=== PATIENT | female | born 1995 | race Two or more races ===

== ENCOUNTER 2017-04-29 11:53 | Observation (INO) | payer OTHER ==
--- NOTE | 2017-04-29 12:39 | EDPHY ---
H & P Time Seen by Provider: 04/29/17 12:25 HPI/ROS: CHIEF COMPLAINT: "I broke my leg" HISTORY OF PRESENT ILLNESS: 21-year-old female arrives via private vehicle complaining of acute left tibia and fibula pain after she was intoxicated, fell out of her bed at approximately 2:00 a.m. this morning, subsequently seen at [facility], diagnosed with a tibia and fibula fracture, splinted and told to come to the ER for further evaluation. She denies paresthesia. Denies back pain. Denies head injury. Denies midline C-spine pain or injury. REVIEW OF SYSTEMS: A ten point review of systems was performed and is negative with the exception of the items mentioned in the HPI PAST MEDICAL/SURGICAL HISTORY: no anticoagulant use, no relevant medical/ surgical history SOCIAL HISTORY: Positive alcohol use at time of incident. [facility] Student PHYSICAL EXAM 1) GENERAL: Well-developed, well-nourished, alert and oriented. Appears uncomfortable Answering questions appropriately. 2) HEAD: Normocephalic, atraumatic 3) HEENT: Pupils equal, round, reactive to light bilaterally. Negative Horners. Nasopharynx, oropharynx, clear. No deformity or angulation of nose. No septal hematoma. No rhinorrhea. No oral trauma. Ears bilaterally with normal tympanic membranes. No hemotympanum. No fluid or blood in the external auditory canal. No raccoon eyes. No Back sign. Teeth are normally aligned with no gross malocclusion, TMJ bilaterally nontender, facial bones nontender including the zygomatic arch, maxilla mandible. 4) NECK: No cervical collar is on. Posterior cervical spine is nontender, no stepoff, no effusion. Full range of motion which does not elicit any midline cervical spine pain, no posterior midline tenderness, no step-off. 5) LUNGS: Clear to auscultation bilaterally, no wheezes, no rhonchi, no retractions. No obvious signs of trauma. No chest wall pain. No flaring, no grunting. Moving symmetrically. No crepitus. 6) HEART: Regular rate and rhythm, 7) ABDOMEN: No guarding, no rebound, no focal tenderness, no peritoneal signs, no signs of trauma, no ecchymosis 8) MUSCULOSKELETAL: Left lower extremity: Ecchymosis, tenderness to palpation mid tibial region with intact skin, soft compartments. Tender to palpation dorsum of left foot. Calcaneus nontender. Soft compartments. DP PT pulses present and brisk. Proximally the knee, femur nontender. 9) BACK: No midline vertebral tenderness, no fluctuance, no step-off, no obvious trauma, no visual or palpable abnormality. 10) SKIN: No laceration. No abrasion DIFFERENTIAL DIAGNOSIS: [in no particular order including but not limited to fracture, sprain, compartment syndrome Smoking Status: Never smoked Constitutional: Initial Vital Signs Temperature (C) 36.7 C 04/29/17 11:58 Heart Rate 106 H 04/29/17 11:58 Respiratory Rate 18 04/29/17 11:58 Blood Pressure 111/61 04/29/17 11:58 O2 Sat (%) 95 04/29/17 11:58 O2 Delivery Mode Room Air Allergies/Adverse Reactions: No Known Allergies Allergy (Unverified 04/29/17 11:57) Home Medications: Medication Instructions Recorded NK [No Known Home Meds] 04/29/17 MDM/Departure - MDM Imaging Results: Imaging Impressions Tibia/Fibula X-Ray 04/29/17 14:02 Impression: Fractures of the proximal fibula and the mid and distal portions of the tibia, as above-detailed. Left Foot (3 Views), at 2:20 PM: There are partially-comminuted and minimally displaced fractures involving the distal diaphyseal portions of the fourth and fifth metatarsals. There is no intra-articular extension of the fractures, or metatarsophalangeal joint malalignment. There is soft tissue swelling. There is a minor hallux valgus configuration with a small osseous bunion. The tarsometatarsal alignment is anatomic. Impression: Partially comminuted fractures involving the distal diaphyseal portions of the fourth and fifth metatarsals. Foot X-Ray 04/29/17 14:03 Impression: Fractures of the proximal fibula and the mid and distal portions of the tibia, as above-detailed. Left Foot (3 Views), at 2:20 PM: There are partially-comminuted and minimally displaced fractures involving the distal diaphyseal portions of the fourth and fifth metatarsals. There is no intra-articular extension of the fractures, or metatarsophalangeal joint malalignment. There is soft tissue swelling. There is a minor hallux valgus configuration with a small osseous bunion. The tarsometatarsal alignment is anatomic. Impression: Partially comminuted fractures involving the distal diaphyseal portions of the fourth and fifth metatarsals. Medications Given: Discontinued Medications Hydromorphone HCl (Dilaudid) 0.5 mg IVP EDNOW ONE Stop: 04/29/17 12:48 Last Admin: 04/29/17 13:06 Dose: 0.5 mg Hydromorphone HCl (Dilaudid) 0.5 mg IVP EDNOW ONE Stop: 04/29/17 16:17 Last Admin: 04/29/17 16:22 Dose: 0.5 mg Sodium Chloride (Ns) 1,000 mls @ 0 mls/hr IV ONCE ONE PRN Reason: Wide Open Stop: 04/29/17 12:57 Last Admin: 04/29/17 13:07 Dose: 1,000 mls Ondansetron HCl (Zofran) 4 mg IVP EDNOW ONE Stop: 04/29/17 12:48 Last Admin: 04/29/17 13:06 Dose: 4 mg ED Course/Re-evaluation: 12:39 p.m.: The patient brought with her images on a CD however we are unable to elbow these to our system. In addition, she is currently splinted I am unable to assess neurovascular status. She requests analgesia prior to me taking down her splint.Care of patient under supervision of secondary supervising physician Dr Larsen . 2:50 p.m.: Phone consultation with DEVYN Harper with Dr. Salvador Crawford who will evaluate the x-rays and call me back 3:50 p.m.: Informed by orthopedics DEVYN Harper that patient will be going to the operating room at approximately 6:00 p.m. for operative repair with Dr. Salvador Crawford. Care of patient under supervision of secondary supervising physician Dr Chaves . orthopedics request that no splint be placed at this time as patient is going to the OR soon. 4:30 p.m.: Orthopedics requests hospitalist admit patient primarily 4:39 p.m.: Phone consultation Dr. Spencer Whalen who will admit patient - Depart Disposition: [facility] Inpatient Acute Clinical Impression: Closed left tibial fracture Qualifiers: Encounter type: initial encounter Tibia location: distal Fracture morphology: other fracture Qualified Code(s): S82.392A - Other fracture of lower end of left tibia, initial encounter for closed fracture Left fibular fracture Qualifiers: Encounter type: initial encounter Fibula location: proximal Fracture type: closed Fracture morphology: other fracture Qualified Code(s): S82.832A - Other fracture of upper and lower end of left fibula, initial encounter for closed fracture Fracture of fourth metatarsal bone of left foot Qualifiers: Encounter type: initial encounter Fracture type: closed Fracture alignment: displaced Qualified Code(s): S92.342A - Displaced fracture of fourth metatarsal bone, left foot, initial encounter for closed fracture Fracture of fifth metatarsal bone of left foot Qualifiers: Encounter type: initial encounter Fracture type: closed Fracture alignment: displaced Qualified Code(s): S92.352A - Displaced fracture of fifth metatarsal bone, left foot, initial encounter for closed fracture Condition: Fair
[2017-04-29] MEDS ORDERED: ONDANSETRON 4 MG/2 ML VIAL IVP ONE (12:47)
[2017-04-29] MEDS ORDERED: HYDROmorphONE/DILAUDID 1 MG/ML INJ IVP ONE ×2 (12:47→16:16)
[2017-04-29] MEDS ORDERED: NS 1,000 ML IV ONE (12:56)
[2017-04-29 13:01] LABS: % IMMATURE GRANULYOCYTES 0.5 % (0.0-1.1); ABSOLUTE IMMATURE GRANULOCYTES 0.06 10^3/uL (0.00-0.10); ADD DIFF? NO; ADD MORPH? NO; ADD SCAN? NO; ATYPICAL LYMPHOCYTE FLAG 0 (0-99); FRAGMENT RBC FLAG 0 (0-99); HEMATOCRIT 41.8 % (38.0-47.0); HEMOGLOBIN 14.2 g/dL (12.6-16.3); LEFT SHIFT FLG 0 (0-99); LIPEMIA HEMOLYSIS FLAG 90 (0-99); MEAN CELL HEMOGLOBIN 29.9 pg (27.9-34.1); MEAN PLATELET VOLUME 10.3 fL (8.7-11.7); PLATELET CLUMPS FLAG 0 (0-99); PLATELET COUNT 352 10^3/uL (150-400); RED BLOOD CELL COUNT 4.75 10^6/uL (4.18-5.33); RED CELL DISTRIBUTION WIDTH 11.8 % (11.5-15.2)
[2017-04-29 13:17] LABS: APTT 24.4 SEC (23.0-38.0); INR 1.13 (0.83-1.16); PROTIME(PATIENT) 14.4 SEC (12.0-15.0)
[2017-04-29 13:35] LABS: ANION GAP 11 mEq/L (8-16); CALCIUM 9.5 mg/dL (8.5-10.4); CARBON DIOXIDE 23 mEq/l (22-31); CHLORIDE 108 mEq/L (97-110); CREATININE 0.6 mg/dL (0.6-1.0); GLOMERULAR FILTRATION RATE > 60; GLUCOSE 92 mg/dL (70-100); SODIUM 142 mEq/L (134-144)
--- NOTE | 2017-04-29 16:21 | PDGENHP ---
History and Physical - Chief Complaint L leg pain - History of Present Illness 21y/o F c/o L leg pain x hours. Pt states she was climbing into her top bunkbed this morning, when she grabbed onto the blanket, which was not secure and she fell onto the floor. Pt states her pain was a 9/10 before arriving to the ED. Pt is unable to bear weight. Pt is accompanied by her two friends. Pt denies any numbness, or tingling in the lower extremities. History Information - Allergies/Home Medication List Allergies/Adverse Reactions: No Known Allergies Allergy (Unverified 04/29/17 11:57) Home Medications: NK [No Known Home Meds] 04/29/17 [Last Taken Unknown] I have personally reviewed and updated: family history, medical history, social history, surgical history Past Medical History: Healthy - Past Medical History no pertinent PMH - Surgical History Reports: no pertinent surgical hx - Family History Positive for: non-pertinent - Social History Smoking Status: Never smoked Alcohol Use: Occasionally Drug Use: None Additional social history: Pt is a Freshman at [employer], 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 Review of Systems Review of Systems: ROS: 10pt was reviewed & negative except for what was stated in HPI & below Physical Exam Physical Exam: Temp Pulse Resp BP Pulse Ox 36 C 88 16 95/65 L 99 04/29/17 14:00 04/29/17 14:00 04/29/17 14:00 04/29/17 14:00 04/29/17 14:00 Constitutional: no apparent distress Eyes: PERRL, EOMI Ears, Nose, Mouth, Throat: moist mucous membranes, hearing normal, no oral mucosal ulcers Peripheral Pulses: 2+: dorsalis-pedis (R), dorsalis-pedis (L) Respiratory: no respiratory distress Gastrointestinal: soft, non-tender abdomen Skin: warm, other (ecchymosis and edema dorsal aspect of the left foot and lower leg; compartments soft), No abrasion, No erythema, No induration Musculoskeletal: other (TTP left dorsal foot over the 4th and 5th metatarsals. TTP left distal tibia and proximal fibula. Able to wiggle her toes. FROM b/l upper extremities with good strength) Neurologic: AAOx3, sensation intact bilaterally, No weakness, No numbness Psychiatric: interacting appropriately Lymph, Heme, Immunologic: no cervical LAD Lab Data & Imaging Review 04/29/17 12:55 04/29/17 12:55 WBC 13.04 10^3/uL (3.80-9.50) H 04/29/17 12:55 RBC 4.75 10^6/uL (4.18-5.33) 04/29/17 12:55 Hgb 14.2 g/dL (12.6-16.3) 04/29/17 12:55 Hct 41.8 % (38.0-47.0) 04/29/17 12:55 MCV 88.0 fL (81.5-99.8) 04/29/17 12:55 MCH 29.9 pg (27.9-34.1) 04/29/17 12:55 MCHC 34.0 g/dL (32.4-36.7) 04/29/17 12:55 RDW 11.8 % (11.5-15.2) 04/29/17 12:55 Plt Count 352 10^3/uL (150-400) 04/29/17 12:55 MPV 10.3 fL (8.7-11.7) 04/29/17 12:55 Neut % (Auto) 84.2 % (39.3-74.2) H 04/29/17 12:55 Lymph % (Auto) 9.4 % (15.0-45.0) L 04/29/17 12:55 Hopkins % (Auto) 5.4 % (4.5-13.0) 04/29/17 12:55 Eos % (Auto) 0.2 % (0.6-7.6) L 04/29/17 12:55 Baso % (Auto) 0.3 % (0.3-1.7) 04/29/17 12:55 Nucleat RBC Rel Count 0.0 % (0.0-0.2) 04/29/17 12:55 Absolute Neuts (auto) 10.99 10^3/uL (1.70-6.50) H 04/29/17 12:55 Absolute Lymphs (auto) 1.22 10^3/uL (1.00-3.00) 04/29/17 12:55 Absolute Monos (auto) 0.71 10^3/uL (0.30-0.80) 04/29/17 12:55 Absolute Eos (auto) 0.02 10^3/uL (0.03-0.40) L 04/29/17 12:55 Absolute Basos (auto) 0.04 10^3/uL (0.02-0.10) 04/29/17 12:55 Absolute Nucleated RBC 0.00 10^3/uL (0-0.01) 04/29/17 12:55 Immature Gran % 0.5 % (0.0-1.1) 04/29/17 12:55 Immature Gran # 0.06 10^3/uL (0.00-0.10) 04/29/17 12:55 PT 14.4 SEC (12.0-15.0) 04/29/17 12:55 INR 1.13 (0.83-1.16) 04/29/17 12:55 APTT 24.4 SEC (23.0-38.0) 04/29/17 12:55 Sodium 142 mEq/L (134-144) 04/29/17 12:55 Potassium 4.0 mEq/L (3.5-5.2) 04/29/17 12:55 Chloride 108 mEq/L (97-110) 04/29/17 12:55 Carbon Dioxide 23 mEq/l (22-31) 04/29/17 12:55 Anion Gap 11 mEq/L (8-16) 04/29/17 12:55 BUN 10 mg/dL (7-23) 04/29/17 12:55 Creatinine 0.6 mg/dL (0.6-1.0) 04/29/17 12:55 Estimated GFR > 60 04/29/17 12:55 Glucose 92 mg/dL (70-100) 04/29/17 12:55 Calcium 9.5 mg/dL (8.5-10.4) 04/29/17 12:55 Beta HCG, Qual NEGATIVE 04/29/17 12:55 Imaging Review: Oblique fracture left lower 1/3 of tibia, proximal fibula fracture. 4th and 5th metatarsal fractures Assessment & Plan Assessment: Closed left tibial fracture (Acute) Fracture of fifth metatarsal bone of left foot (Acute) Fracture of fourth metatarsal bone of left foot (Acute) Left fibular fracture (Acute) Plan: - NPO - IM jairo fixation of the tibia planned later this evening with Dr. Crawford - Consent obtained - Pain management - NWB LLE - SCDs/TEDs for mechanical prophylaxis
[2017-04-29] MEDS ORDERED: ceFAZolin 2 GM/DEXTROSE 100 ML IV ONE (16:26)
[2017-04-29] MEDS ORDERED: ACETAMINOPHEN 325 MG TAB PO PRN (17:03)
[2017-04-29] MEDS ORDERED: ONDANSETRON 4 MG/2 ML VIAL IVP PRN ×2 (17:03→20:01)
[2017-04-29] MEDS ORDERED: HYDROmorphONE/DILAUDID 1 MG/ML INJ IVP PRN ×2 (17:06→20:01)
[2017-04-29] MEDS ORDERED: D5W 1/2 NS W/ 20 KCl/L 1,000 ML IV SCH (17:15)
--- NOTE | 2017-04-29 17:46 | GHP ---
[f rep st] HISTORY AND PHYSICAL DATE OF ADMISSION: 04/29/2017 HISTORY OF PRESENT ILLNESS: The patient is a 21-year-old healthy female, who had a mechanical fall l ast night. She was climbing up into her bunk at . She was on the second rung when she grabbed her blanket. Her blanket was not secure, and she fell and landed on her ankle. She twisted her ankle. She did not hit her head. She did not lose consciousness. She had been out having alcohol last nig ht, but was not excessively intoxicated. She was unable to bear weight and had pain initially, but s he opted to sleep on it and seek care today. No fever, chills, cough, sputum, nausea, vomiting, or d iarrhea. REVIEW OF SYSTEMS: A complete 10-point review of systems was conducted and negative except as noted in the HPI. PAST MEDICAL HISTORY: None. ALLERGIES: None. HOME MEDICATIONS: None. SOCIAL HISTORY: She is a student at from [place], [place]. She is a nonsmoker and social alcohol. FAMILY HISTORY: Reviewed. There were no bleeding complications. PHYSICAL EXAMINATION: VITAL SIGNS: Temperature 36.7, pulse initially 106 and now in the 80s, breath ing 18 times a minute, 95% on room air, blood pressure 95/65. GENERAL: No acute distress. Lying fl at. HEENT: Sclerae anicteric. Oropharynx clear. Mucous membranes moist. NECK: Supple, without l ymphadenopathy or JVD. LUNGS: Clear to auscultation bilaterally. HEART: S1, S2. Not tachycardic. Without murmur. ABDOMEN: Soft, nontender, nondistended. LOWER EXTREMITIES: There is edema and e cchymosis on the left. She has good cap refill. Her dorsalis pedis pulse is a little bit difficult to feel. She also has a fair amount of bruising over the dorsum of her foot, but again she has good cap refill. NEUROLOGIC: Exam is nonfocal. SKIN: Otherwise without rash. LABORATORY DATA: White count 13, hematocrit 42, platelets 350,000. Coags normal. Sodium 142, potas sium 4, chloride 108, bicarb 22, BUN 10, creatinine 0.6, glucose 92. Beta-hCG is negative. Tib-fib x-ray shows a proximal fibular fracture and a distal tibial fracture. These appear to be spiral in n ature. These x-rays were interpreted by me. Foot x-ray shows a partially comminuted fracture involv ing the distal diaphyseal portion of the 4th and 5th metatarsals. I discussed the case with DEVYN Johnson, in the emergency department. ASSESSMENT AND PLAN: A 21-year-old female, with multiple fractures secondary to fall. 1. Fractures. She is going to get jairo stabilization of her tibial fracture. I suspect that managem ent of the fibular and metatarsal fractures will be nonoperative. 2. Preoperative cardiac evaluation. The patient is young, with no cardiac risk factors. She may pr oceed to the OR without further workup or intervention. 3. Prophylaxis. Recommend SCDs. She is low risk. 4. Leukocytosis. Likely secondary to fractures. 5. Pain. We will give her IV Dilaudid. Thereafter, would recommend oral pain medications. /[id number]/MODL
[2017-04-29] MEDS ORDERED: BUPIVACAINE 0.25% 30 ML SDV ONE (18:13)
[2017-04-29] MEDS ORDERED: BACITRACIN 50,000 UNITS/10 ML SYR IRR ONE (18:14)
--- NOTE | 2017-04-29 19:00 | PDANEPAE ---
ANE History of Present Illness l tibial fracture ANE Past Medical History - Pulmonary History Hx Oxygen in Use at Home: No Hx Sleep Apnea: No - Endocrine History Hx Diabetes: No ANE Review of Systems Review of Systems: - Exercise capacity METS (RN): 4 METS ANE Patient History - Allergies Allergies/Adverse Reactions: No Known Allergies Allergy (Unverified 04/29/17 11:57) - Home Medications Home Medications: NK [No Known Home Meds] 04/29/17 [Last Taken Unknown] - NPO status NPO Since - Liquids (Date): 04/29/17 NPO Since - Liquids (Time): 10:00 NPO Since - Solids (Date): 04/29/17 NPO Since - Solids (Time): 10:00 - Smoking Hx Smoking Status: Never smoked - Alcohol Use Alcohol Use: Occasionally ANE Labs/Vital Signs - Labs Result Diagrams: 04/29/17 12:55 04/29/17 12:55 - Vital Signs Blood Pressure: 92/56 Heart Rate: 85 Respiratory Rate: 18 O2 Sat (%): 96 Height: 157.48 cm Weight: 49.895 kg ANE Physical Exam - Airway Neck exam: FROM Mallampati Score: Class 1 Mouth exam: normal dental/mouth exam - Pulmonary Pulmonary: no respiratory distress - Cardiovascular Cardiovascular: regular rate and rhythym - ASA Status ASA Status: II, E ANE Anesthesia Plan Anesthesia Plan: general endotracheal anesthesia
[2017-04-29] MEDS ORDERED: fentaNYL 100 MCG/2 ML INJ ONE (19:03)
[2017-04-29] MEDS ORDERED: LIDOCAINE 2% 5 ML SDV ONE (19:03)
[2017-04-29] MEDS ORDERED: PROPOFOL 200 MG/20 ML VIAL ONE (19:03)
[2017-04-29] MEDS ORDERED: ONDANSETRON 4 MG/2 ML VIAL ONE (19:03)
[2017-04-29] MEDS ORDERED: ROCURONIUM 50 MG/5 ML VIAL ONE (19:03)
[2017-04-29] MEDS ORDERED: DEXAMETHASONE 4 MG/ML VIAL ONE (19:03)
[2017-04-29] MEDS ORDERED: HYDROmorphONE/DILAUDID 2 MG/ML INJ ONE (19:03)
[2017-04-29] MEDS ORDERED: PROMETHAZINE HCL 25 MG/ML INJ IVP PRN (20:01)
[2017-04-29] MEDS ORDERED: MEPERIDINE 25 MG/ML SYR IVP PRN (20:01)
[2017-04-29] MEDS ORDERED: fentaNYL 100 MCG/2 ML INJ IVP PRN (20:01)
[2017-04-29] MEDS ORDERED: NALOXONE HCL 0.4 MG/ML INJ IVP PRN (20:01)
--- NOTE | 2017-04-29 20:28 | POSTOPPROG ---
Post Op Note Date of Operation: 04/29/17 Surgeon: Salvador Crawford Reinsurance Claims Analyst: Meredith Okeefe PA-C Anesthesiologist: Dr. Jovel Anesthesia: GET(General Endotracheal) Pre-op Diagnosis: L tibia and fibula fractures Post-op Diagnosis: L tibia and fibula fractures Procedure: IM nail fixation L tibia fracture Findings: See full dictation Inf/Abcess present in the surg proc area at time of surgery?: No Depth: Deep Incisional (Fascial) EBL: Minimal
--- NOTE | 2017-04-29 20:33 | POSTANESTH ---
Post Anesthetic Evaluation Cardiovascular Status: Normal, Stable Respiratory Status: Normal, Stable Level of Consciousness/Mental Status: Can Participate in Eval Pain Control: Adequate, Prn Tx Ordered Nausea/Vomiting Control: Adequate, Prn Tx Ordered Complications Possibly Related to Anesthesia: None Noted
[2017-04-29] MEDS: ONDANSETRON DISINTEGRATING 4 MG TAB PO PRN (22:59)
--- NOTE | 2017-04-29 23:57 | GOP ---
[f rep st] OPERATIVE REPORT DATE OF OPERATION: SURGEON: Salvador Crawford MD PREOPERATIVE DIAGNOSIS: 1. Left tibia fracture. 2. Left fibula fracture. 3. Left 4th metatarsal fracture. 4. Left 5th metatarsal fracture. POSTOPERATIVE DIAGNOSIS: 1. Left tibia fracture. 2. Left fibula fracture. 3. Left 4th metatarsal fracture. 4. Left 5th metatarsal fracture. PROCEDURE PERFORMED: 1. Intramedullary nail fixation, left tibia. 2. Closed treatment, left fibula. 3. Closed treatment, left 4th metatarsal fracture. 4. Closed treatment, left 5th metatarsal fracture. FINDINGS: A Synthes titanium intramedullary nail was utilized. This was a 315 mm long nail x 10 mm wide, that was statically interlocked x2 distally, and dynamically interlocked x1 proximally. 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 She sustained injury to her left leg and arrived in the [facility] Emergency Department where her bone fractures were identified and catalogued. Options for treatment were presented to the patient and she elected to proceed with intramedullary nail fixation. She did not need operative treatment of the other fractures. DESCRIPTION OF PROCEDURE: After routinely checking the patient's identification and consent, and the successful induction of LMA general endotracheal anesthetic, the patient was positioned with the Acu fex leg marie on the left leg allowing it to suspend from the thigh off the end of the operative tab le. A well leg marie was used for the right leg which was abducted and externally rotated out of th e way. The patient's left leg was now prepped and draped in usual standard fashion. I exsanguinated the limb with an Esmarch wrap and pneumatic tourniquet previously placed about the proximal left leg was inflated to 250 mmHg. A surgical time-out was completed. A longitudinal incision just to the m edial side of the patellar tendon was carried sharply through skin and then bluntly through the subcu taneous layer. I incised the patellar retinaculum just to the medial side of the patellar tendon. H emostasis was secured with electrocautery. I used a starting awl to create a fixed wing pilot hole in the tibia l plateau. I flexed the knee and passed the guidewire down it, longitudinally down the tibia. I sea miguel angel this at the distal physeal scar. The small FluoroScan unit was used to verify that the guidewire was indeed in the intramedullary canal. I then commenced with reaming this, taking care to flex the knee to avoid any patellar impingement. I reamed up to a size 11 reamer which had significant chatt er at the mid diaphysis of the tibia. The driving apparatus was installed on the nail and the nail w as inserted. Once the nail was flush proximally and appropriately positioned distally, the guide jairo was removed and the proximal interlock was performed from lateral to medial. This achieved excellen t purchase and was placed in the dynamic slot. I then removed the insertion apparatus and the drivin g apparatus and placed an end cap on the nail. I irrigated this wound. I then examined the distal a spect of the nail. I had a parallel tribal/tribal screw holes identified on the FluoroScan and then used the radiolucent drill via small cutdown incisions to distally interlock this x2 from medial to l ateral. Once this was completed, the entire tibia was scanned with the FluoroScan unit in 2 planes v erifying that this was appropriately reduced and the hardware was positioned appropriately. Satisfie d with this, the wounds were irrigated. I closed the cutdown incisions for the interlocking screws w ith subcuticular 4-0 Vicryl followed by Steri-Strips. I closed the patellar retinaculum with 0 Vicry l. The subcutaneous layer with 2-0 and 4-0 Vicryl and the skin with subcuticular 4-0 Monocryl follow ed by Steri-Strips. 0.5% Marcaine plus epinephrine infiltrated at the interlocking screw sites and a lso intra-articularly in the knee and also along the anterior wound for postoperative comfort and ass istance in hemostasis. A sterile bulky dressing was applied full-length from knee to ankle with gent le compression. The tourniquet was deflated and the patient was reversed from anesthetic and extubat ed in the operating room. She was transferred to the recovery room in excellent condition. She tole rated the procedure well. There were no complications. REASON FOR DEGREASER OPERATOR: A surgical garment assembly supervisor was medically necessary and required to complete this case. The geriatric assistant was used to decrease surgical time. The geriatric assistant was also used to positi on the leg in 3-dimensional space during the reduction of the fracture and passage of the definitive implants. /[id number]/MODL
[2017-04-30] MEDS: oxyCODONE IR 5 MG TAB PO PRN ×4 (00:57→15:12)
[2017-04-30] MEDS: ceFAZolin 2 GM/DEXTROSE 100 ML IV SCH ×2 (03:52→11:15)
[2017-04-30 05:11] LABS: % IMMATURE GRANULYOCYTES 0.4 % (0.0-1.1); ABSOLUTE IMMATURE GRANULOCYTES 0.04 10^3/uL (0.00-0.10); ADD DIFF? NO; ADD MORPH? NO; ADD SCAN? NO; ATYPICAL LYMPHOCYTE FLAG 0 (0-99); FRAGMENT RBC FLAG 0 (0-99); HEMOGLOBIN 12.7 g/dL (12.6-16.3); LEFT SHIFT FLG 0 (0-99); LIPEMIA HEMOLYSIS FLAG 80 (0-99); MEAN CELL HEMOGLOBIN 29.7 pg (27.9-34.1); MEAN CELL HEMOGLOBIN CONCENTR. 33.4 g/dL (32.4-36.7); MEAN PLATELET VOLUME 10.9 fL (8.7-11.7); PLATELET CLUMPS FLAG 0 (0-99); PLATELET COUNT 299 10^3/uL (150-400); RED BLOOD CELL COUNT 4.27 10^6/uL (4.18-5.33); RED CELL DISTRIBUTION WIDTH 11.9 % (11.5-15.2)
[2017-04-30] MEDS: ASPIRIN 325 MG TAB PO SCH (08:15)
--- NOTE | 2017-04-30 14:54 | SOAPPROG ---
SOAP Progress Note Assessment/Plan: Assessment/Plan: s/p IM nail fixation L tibia fracture POD#1 - Continue pain management - Continue ice and elevation for pain and swelling - NWB LLE - PT/OT - ASA 325mg daily for VTE chemoprophylaxis - SCDs/TEDs on RLE - Continue course of prophylactic antibiotics - Likely discharge tomorrow 04/30/17 14:51 Subjective: Pt states she is doing okay, she skipped a dose of her oxycodone and is trying to "catch up". Pt denies fever, chills, chest pain, SOB, abdominal pain, N/V/D, numbness, tingling, and calf pain. Objective: Vital Signs Temp Pulse Resp BP Pulse Ox 36.8 C 76 17 108/80 95 04/30/17 11:32 04/30/17 11:32 04/30/17 11:32 04/30/17 11:32 04/30/17 11:32 Laboratory Results 04/30/17 04:34 04/29/17 04/30/17 05/01/17 05:59 05:59 05:59 Intake Total 2500 Output Total 700 Balance 1800 PT 14.4 SEC (12.0-15.0) 04/29/17 12:55 INR 1.13 (0.83-1.16) 04/29/17 12:55 Physical Exam - Physical Exam General Appearance: alert, no apparent distress Cardiac/Chest: normal peripheral pulses Skin: normal color, warm/dry Extremities: normal inspection, normal capillary refill, pedal edema (dorsal aspect L foot with associated ecchymosis), No calf tenderness, No Antelmo's sign Neuro/Psych: no motor/sensory deficits, alert, normal mood/affect, oriented x 3 ICD10 Worksheet Patient Problems: Problems Problem Status Onset Closed left tibial fracture Acute Fracture of fifth metatarsal bone of left foot Acute Fracture of fourth metatarsal bone of left foot Acute Left fibular fracture Acute
--- NOTE | 2017-04-30 16:02 | ASMTCMCOM ---
CM Note CM Note Notes: 21 year old female fell from a climb to her top bunk- left tibial/fibular fx's, 4th and 5th metatarsal fx's. will be dischaged Monday. Wrote a note for assist on campus to get to classes. Mother coming from [place] to assist at home. No other needs at this time. Date Signed: 04/30/2017 04:01 PM Electronically Signed By:Stacy Manrique LCSW
[2017-04-30] MEDS: HYDROCODONE/APAP 5/325 TAB PO PRN ×2 (18:11→22:16)
[2017-05-01] MEDS: oxyCODONE IR 5 MG TAB PO PRN (01:39)
[2017-05-01] MEDS: ONDANSETRON DISINTEGRATING 4 MG TAB PO PRN (04:11)
[2017-05-01] MEDS: HYDROCODONE/APAP 5/325 TAB PO PRN ×3 (06:33→15:52)
[2017-05-01 08:02] VITALS: BP 101/58; PULSE 79; RESP 15; TEMP 98.4; O2SAT 90
--- NOTE | 2017-05-01 08:14 | SOAPPROG ---
SOAP Progress Note Assessment/Plan: Assessment: POD#2 left tibia fracture IM nail Plan: Assessment/Plan: s/p IM nail fixation L tibia fracture POD#2 - Continue pain management - Continue ice and elevation for pain and swelling - NWB LLE - PT/OT - ASA 325mg daily for VTE chemoprophylaxis - SCDs/TEDs on RLE - Continue course of prophylactic antibiotics - Ortho Stable - D/C planning Subjective: 21 year old female who is post op day #2 from a left tibia fracture IM nail. She states that her pain is better controlled today. Overall stable Objective: Vital Signs Temp Pulse Resp BP Pulse Ox 36.9 C 79 15 101/58 L 90 L 05/01/17 08:00 05/01/17 08:00 05/01/17 08:00 05/01/17 08:00 05/01/17 08:00 Laboratory Results 04/30/17 04:34 04/30/17 05/01/17 05/02/17 05:59 05:59 05:59 Intake Total 2500 400 Output Total 700 Balance 1800 400 PT 14.4 SEC (12.0-15.0) 04/29/17 12:55 INR 1.13 (0.83-1.16) 04/29/17 12:55 Physical exam LLE: camboot in place. Dressings clean, dry and intact. Patient able to move all 5 toes. Normal sensation to light touch in the LLE. Distal pulse present in the LLE. ICD10 Worksheet Patient Problems: Problems Problem Status Onset Closed left tibial fracture Acute Fracture of fifth metatarsal bone of left foot Acute Fracture of fourth metatarsal bone of left foot Acute Left fibular fracture Acute
[2017-05-01] MEDS: ASPIRIN 325 MG TAB PO SCH (09:07)
--- NOTE | 2017-05-01 10:50 | ASMTCAGE ---
CAGE Do you feel you ought to Answers: No cut down on your drinking or drug use? Do people annoy you by Answers: No criticizing your drinking or drug use? Do you feel guilty about Answers: No your drinking or drug use? 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 Date Signed: 05/01/2017 10:49 AM Electronically Signed By:BHUPENDRA Moreno
--- NOTE | 2017-05-01 10:51 | ASMTCMCOM ---
CM Note CM Note Notes: Pt medically stable for d/c, no CM d/c needs identified. Pt mother will arrive from [place] approx Monday for support. CAGE screen completed. Date Signed: 05/01/2017 10:51 AM Electronically Signed By:BHUPENDRA Moreno
--- NOTE | 2017-05-02 09:15 | ASDISCHSUM ---
Discharge Information Plan Status:Home with DME or Oxygen Medically Cleared to Leave: Discharge Date:05/01/2017 05:34 PM CM D/C Disposition:Home, Routine, Self-Care ADT D/C Disposition:Home, Routine, Self-Care Projected Discharge Date:05/01/2017 12:00 AM Transportation at D/C:Friend Discharge Delay Reason: Follow-Up Date:05/01/2017 12:00 AM Discharge Slot: Final Diagnosis:left tib fib fx's; 4th and 5th metatarsal fx's Placement Information Patient Contact Information Contact Name:BELINDA Relationship:Father Address: Work Phone: City: [facility] Phone: [facility]/[employer] Code: Email: Financial Information Financial Class:HMO and PPO Plans Primary Plan Desc:[facility] Primary Plan Number:[id number] Secondary Plan Desc: Secondary Plan Number: Assessment Information [facility] CM Progress Note CM Note CM Note Notes: 21 year old female fell from a climb to her top bunk- left tibial/fibular fx's, 4th and 5th metatarsal fx's. will be dischaged Monday. Wrote a note for assist on campus to get to classes. Mother coming from [place] to assist at home. No other needs at this time. Date Signed: 04/30/2017 04:01 PM Electronically Signed By:Stacy Manrique LCSW CAGE Questionnaire CAGE Do you feel you ought to Answers: No cut down on your drinking or drug use? Do people annoy you by Answers: No criticizing your drinking or drug use? Do you feel guilty about Answers: No your drinking or drug use? 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 Date Signed: 05/01/2017 10:49 AM Electronically Signed By:BHUPENDRA Moreno BC CM Progress Note CM Note CM Note Notes: Pt medically stable for d/c, no CM d/c needs identified. Pt mother will arrive from [place] approx Monday for support. CAGE screen completed. Date Signed: 05/01/2017 10:51 AM Electronically Signed By:BHUPENDRA Moreno Intervention Information
--- NOTE | 2017-05-03 09:05 | PDDCSUM ---
Discharge Summary Discharge Summary: 21y/o F presented to the ED via private vehicle c/o L leg pain since that morning after falling from her top bunkbed. Pt was given one dose of Ancef prior to surgery and consent was obtained for IM nail fixation L tibia fracture. No intra-operative complications. Pt received an additional 24- hours of prophylactic antibiotics per protocol post-operatively. Pain was well managed. PT/OT evaluations. Aspirin 325mg PO daily x 21 days. SCDs/TEDs on the non-operative leg for mechanical prophylaxis. Follow-up for post-operative appointment with Dr. Crawford 10-14 days post-operatively. Hospital course otherwise uneventful.
== END 2017-05-01 17:34 | disposition home or self-care (01) ==
LOC: F3N 21:30
PROVIDERS: ADMIT Orthopaedic Surgery Hand Surgery; ATTEND Orthopaedic Surgery Hand Surgery
PROC: 0QSH06Z Reposition Left Tibia with Intramedullary Internal Fixation Device, Open Approach (ICD-10-PCS; principal; 2017-04-29 19:00)
DX: S82.832A Other fracture of upper and lower end of left fibula, initial encounter for closed fracture (principal); S82.392A Other fracture of lower end of left tibia, initial encounter for closed fracture; S92.342A Displaced fracture of fourth metatarsal bone, left foot, initial encounter for closed fracture; S92.352A Displaced fracture of fifth metatarsal bone, left foot, initial encounter for closed fracture; W06.XXXA Fall from bed, initial encounter
CPT/HCPCS: 27759; 73590; 73630; 96361; 96374; 96375; 96376; 97116; 97161; 97165; 97535; 99285; G0378; C1713; J0171; J0690; J1100; J1170; J2405; J2704; J3010

== ENCOUNTER 2017-05-05 16:21 | Emergency (ER) | payer OTHER ==
[2017-05-05 16:28] VITALS: TEMP 97.5
--- NOTE | 2017-05-05 17:47 | EDPHY ---
H & P Stated Complaint: [facility] IN L LEG POST OP Time Seen by Provider: 05/05/17 17:46 HPI/ROS: CHIEF COMPLAINT: Left leg pain and edema secondary to surgery HISTORY OF PRESENT ILLNESS: The patient is a healthy 21 y/o female arriving with her mother complaining of pain in her right leg and swelling secondary to intramedullary rodding of tibial fracture that occurred after falling out of her bunk bed six days ago. This is POD 5. Yesterday she experienced worsening pain and swelling. She was advised by a partner of Dr. Crawford, her surgeon, to begin taking aspirin. Pain and swelling has not improved. The pain is centralized in the anterior aspect of her calf. She has been taking pain (narco and oxycodone) medication as prescribed by the surgeon and remained in a boot and non-weight bearing as directed. She reports she vomited once from the pain. She denies trouble breathing, chest pain, or any other associated symptoms. REVIEW OF SYSTEMS: A ten point review of systems was performed and is negative with the exception of the items mentioned in the HPI. Past medical history: Denies Past surgical history: ORIF left tibia 04/30/17. Family history: Non-contributory Social history: Mother at bedside, non-smoker, [employer] student, from [place]. Focal exam performed. General Appearance: Alert. Vital signs reviewed. Respiratory: Lungs are clear to auscultation; no wheezes, rales, or rhonchi. Cardiovascular: Regular rate and rhythm; no murmur, rub, or gallop. Skin: Warm and dry, no rashes on exposed skin, normal color. Extremities: Steri strips in place on left knee and medial aspect of the left ankle. Incisions on left leg clean and dry without erythema. Diffuse edema on the left leg from the knee down. Calf is soft, not tense. Pulses: Dorsalis pedis and tibialis posterior checked with Doppler. Psychiatric: Normal affect. - Personal History LMP (Females 10-55): Extended Cycle BCP/Inj Current Tetanus Diphtheria and Acellular Pertussis (TDAP): Yes Tetanus Vaccine Date: < 10 YEARS - Medical/Surgical History Hx Asthma: No Hx Chronic Respiratory Disease: No Hx Diabetes: No Hx Cardiac Disease: No Hx Renal Disease: No Hx Cirrhosis: No Hx Alcoholism: No Hx HIV/AIDS: No Hx Splenectomy or Spleen Trauma: No Other PMH: denies - Social History Smoking Status: Never smoked Constitutional: Initial Vital Signs Temperature (C) 36.4 C 05/05/17 16:22 Heart Rate 100 05/05/17 16:22 Respiratory Rate 16 05/05/17 16:22 Blood Pressure 106/70 05/05/17 16:22 O2 Sat (%) 92 05/05/17 16:22 O2 Delivery Mode Room Air Allergies/Adverse Reactions: No Known Allergies Allergy (Unverified 05/05/17 16:28) Home Medications: Medication Instructions Recorded Aspirin [Aspirin 325 mg (*)] 325 mg PO DAILY tab 04/30/17 Ondansetron Odt [Zofran Odt 4 mg 4 mg PO Q4HRS PRN #30 tab 04/30/17 (*)] oxyCODONE IR [Oxycodone Ir (*)] 5 - 10 mg PO Q4HRS PRN #30 tab 04/30/17 Hydrocodone/Acetaminophen [[place] 1 - 2 tab PO Q4H PRN #10 tab 05/01/17 5/325 (*)] Hydrocodone/APAP 5/325 [[place] 1 - 2 tab PO Q4 PRN #14 tab 05/05/17 5/325 (RX)] Medical Decision Making - Diagnostics Imaging: Discussed imaging studies w/ call manager Radiologist, I viewed and interpreted images myself ED Course/Re-evaluation: The patient is a healthy 21 y/o status 5 days post op from intramedullary rodding of left tibia complaining of pain and swelling in her lower left leg. 190: I reassessed patient and found her condition unchanged. I informed her of the results of her X-ray which was not indicative of any acute processes. Hardware intact. I discussed possibility of compartment syndrome and will reassess after US results. US negative for DVT. I doubt compartment syndrome. Patient received two [place] with subsequent pain relief. 1919: I spoke with a PA, Dario, from Dr. Crawford's office regarding this patient. She does not advise any further testing. 1938: I informed her of my conversation with Dr. Mayorga's office. I feel she is safe to return home. The patient is comfortable with this course of action. We did review signs/sx of compartment syndrome. She will be seen in follow up this week. Differential Diagnosis: I considered a ddx that includes but is not limited to hardware failure, post op infection, DVT, inadequate pain medication, noncompliance with post op instructions (this does not seem to be the case), and compartment syndrome. - Data Points Medications Given: Discontinued Medications Hydrocodone Bitart/Acetaminophen ([place] 5/325) 2 tab PO EDNOW ONE Stop: 05/05/17 18:47 Last Admin: 05/05/17 18:52 Dose: 2 tab Departure - Departure Disposition: Home, Routine, Self-Care Clinical Impression: Post-operative pain Condition: Good Instructions: Leg Pain (ED) Additional Instructions: 1. Continue taking medications as advised as needed for pain. 2. Follow-up with Dr. Crawford as planned on Monday. 3. Return to the ED for dramatic increase in pain or swelling, trouble breathing , chest pain, or other worsening of condition. Referrals: ARLEEN BARROS [Other] - As per Instructions Salvador Crawford MD [Medical Doctor] - As per Instructions Stand Alone Forms: Narcotic Guidelines Prescriptions: Hydrocodone/APAP 5/325 [[place] 5/325 (RX)] 1 - 2 tab PO Q4 PRN #14 tab PRN Reason: pain Report Scribed for: Lauren Neal Report Scribed by: Daphney Siegel Date of Report: 05/05/17 Time of Report: 18:13 Physician Review and Approval Statement: 05/11/17 14:32 Portions of this chart were entered by a medical stenographer. I personally performed the PE, MDM, and HPI. I have reviewed the chart and agree with the documentation.
[2017-05-05] MEDS ORDERED: HYDROCODONE/APAP 5/325 TAB PO ONE (18:46)
[2017-05-05 19:51] VITALS: BP 106/60; PULSE 72; RESP 14; O2SAT 97
== END 2017-05-05 19:50 | disposition home or self-care (01) ==
DX: G89.18 Other acute postprocedural pain (principal); Z79.82 Long term (current) use of aspirin